=== PATIENT | female | born 1970 | race Two or more races ===

== ENCOUNTER → 2017-05-05 | Outpatient (REF) | payer OTHER | LOC: M SFHCPLAZ 09:33 | PROVIDERS: ATTEND Family Medicine | DX: F32.9 Major depressive disorder, single episode, unspecified (principal); E07.9 Disorder of thyroid, unspecified; Z68.41 Body mass index [BMI] 40.0-44.9, adult; Z13.220 Encounter for screening for lipoid disorders; Z72.51 High risk heterosexual behavior; Z11.59 Encounter for screening for other viral diseases; Z11.4 Encounter for screening for human immunodeficiency virus [HIV] ==

== ENCOUNTER → 2017-05-12 | Outpatient (REF) | payer OTHER | LOC: M SFHCPLAZ 09:59 | PROVIDERS: ATTEND Family Medicine | DX: D64.9 Anemia, unspecified (principal); R73.01 Impaired fasting glucose ==

== ENCOUNTER → 2017-07-05 | Outpatient (REF) | payer OTHER, MEDICARE | LOC: M SFHCWAGY 10:44 | DX: Z12.31 Encounter for screening mammogram for malignant neoplasm of breast (principal) ==

== ENCOUNTER → 2017-07-05 | Outpatient (REF) | payer OTHER, MEDICARE | LOC: M SFHCWAGY 10:44 | DX: Z12.4 Encounter for screening for malignant neoplasm of cervix (principal); N76.0 Acute vaginitis ==

== ENCOUNTER → 2017-07-05 | Outpatient (REF) | payer OTHER, MEDICARE ==
[2017-07-08 14:10] LABS: HPV HYBRID CAPTURE II Positive (Negative)
== END ==
LOC: M SFHCWAGY 10:44
DX: Z12.4 Encounter for screening for malignant neoplasm of cervix (principal); N76.0 Acute vaginitis
CPT/HCPCS: 88142

== ENCOUNTER → 2017-07-05 | Outpatient (CLI) | payer OTHER | LOC: M WHC 09:22 | DX: Z12.31 Encounter for screening mammogram for malignant neoplasm of breast (principal) | CPT/HCPCS: 93971 ==

== ENCOUNTER → 2017-07-05 | Outpatient (CLI) | payer OTHER | LOC: M RAD 10:27 | DX: M79.89 Other specified soft tissue disorders (principal) ==

== ENCOUNTER → 2017-07-18 | Outpatient (CLI) | payer OTHER | LOC: M WHC 08:48 | DX: N85.2 Hypertrophy of uterus (principal); D25.9 Leiomyoma of uterus, unspecified | CPT/HCPCS: 76830 ==

== ENCOUNTER 2017-08-12 20:20 | Emergency (ER) | payer OTHER, MEDICARE ==
[2017-08-12] MEDS: KETOROLAC 30 MG/ML VIAL (J1885) IV (21:02)
[2017-08-12] MEDS: ASPIRIN 325 MG TAB PO (21:02)
[2017-08-12] MEDS: NS 500 ML IV (21:02)
[2017-08-12 21:03] LABS: BASO % 0.3 % (0.0-1.0); EOS # 0.2 10^3/uL (0.0-0.50); EOS % 3.1 % (0.0-3.0); HEMATOCRIT 39.2 % (36.0-47.0); HEMOGLOBIN 12.2 g/dl (12.0-16.0); IMMATURE GRANULOCYTE % 0.5 % (0-3.0); LYMPH # 2.6 10^3/uL (1.5-4.5); LYMPH % 34.9 % (24.0-44.0); MEAN CORPUSCULAR HEMOGLOBIN 27.7 pg (27.0-33.0); MEAN CORPUSCULAR HGB CONC 31.1 g/dl (32.0-36.5); MEAN CORPUSCULAR VOLUME 88.9 fl (80.0-96.0); MONO # 0.6 10^3/uL (0.0-0.8); MONO % 7.8 % (0.0-5.0); NEUTROPHILS # 3.9 10^3/uL (1.8-7.7); NEUTROPHILS % 53.4 % (36.0-66.0); PLATELET COUNT, AUTOMATED 312 10^3/uL (150-450); RED BLOOD COUNT 4.41 10^6/uL (4.00-5.40); RED CELL DISTRIBUTION WIDTH 16.8 % (11.5-14.5); WHITE BLOOD COUNT 7.3 10^3/uL (4.0-10.0)
[2017-08-12 21:07] LABS: INR 0.99; PROTHROMBIN TIME 13.2 SECONDS (12.4-14.5)
[2017-08-12 21:16] LABS: ANION GAP 7 MEQ/L (8-16); BLOOD UREA NITROGEN 11 MG/DL (7-18); CALCIUM LEVEL 8.6 MG/DL (8.5-10.1); CARBON DIOXIDE LEVEL 25 MEQ/L (21-32); CHLORIDE LEVEL 107 MEQ/L (98-107); CPK CREATINE PHOSPHOKINASE 109 U/L (26-192); CREATININE FOR GFR 0.63 MG/DL (0.55-1.30); GLOMERULAR FILTRATION RATE > 60.0 (>58); GLUCOSE, FASTING 92 MG/DL (70-100); MB/CK RELATIVE INDEX 0.91 (< OR =4); POTASSIUM SERUM 4.8 MEQ/L (3.5-5.1); SODIUM LEVEL 139 MEQ/L (136-145); TROPONIN I < 0.02 NG/ML (< 0.10)
[2017-08-12] MEDS ORDERED: ISOVUE-370 76% 100ML VIAL (Q9967) As Ordered (21:24)
[2017-08-12 23:28] LABS: CPK CREATINE PHOSPHOKINASE 96 U/L (26-192); TROPONIN I < 0.02 NG/ML (< 0.10)
[2017-08-12 23:29] LABS: MB/CK RELATIVE INDEX 1.04 (< OR =4)
== END 2017-08-12 23:46 | disposition home or self-care (01) ==
LOC: M ED 20:20
DX: R07.1 Chest pain on breathing (principal); F32.9 Major depressive disorder, single episode, unspecified; D50.9 Iron deficiency anemia, unspecified; J45.909 Unspecified asthma, uncomplicated; Z86.718 Personal history of other venous thrombosis and embolism; Z87.891 Personal history of nicotine dependence; Z79.899 Other long term (current) drug therapy
CPT/HCPCS: Q9967

== ENCOUNTER → 2018-01-08 | Outpatient (CLI) | payer OTHER | LOC: M RAD 12:27 | DX: D17.1 Benign lipomatous neoplasm of skin and subcutaneous tissue of trunk (principal) | CPT/HCPCS: 76882 ==

== ENCOUNTER → 2018-02-12 | Outpatient (REF) | payer OTHER | LOC: M SFHCLERA 10:14 | DX: D17.1 Benign lipomatous neoplasm of skin and subcutaneous tissue of trunk (principal) | CPT/HCPCS: 88304 ==

== ENCOUNTER → 2018-02-13 | Outpatient (CLI) | payer OTHER ==
[2018-02-13 18:39] LABS: HEMOGLOBIN 12.4 g/dl (12.0-15.5); MEAN CORPUSCULAR HEMOGLOBIN 28.9 pg (27.0-33.0); MEAN CORPUSCULAR VOLUME 93.2 fl (80.0-96.0); PLATELET COUNT, AUTOMATED 323 10^3/uL (150-450); RED BLOOD COUNT 4.29 10^6/uL (4.00-5.40); RED CELL DISTRIBUTION WIDTH 14.6 % (11.5-14.5); WHITE BLOOD COUNT 8.2 10^3/uL (4.0-10.0)
== END ==
LOC: M SMT 13:23
DX: D50.0 Iron deficiency anemia secondary to blood loss (chronic) (principal)
CPT/HCPCS: 85027

== ENCOUNTER → 2018-03-23 | Outpatient (REF) | payer OTHER ==
[2018-03-23 16:11] LABS: HIV 1&2 SCREEN CENTAUR NEGATIVE (NEGATIVE)
[2018-03-23 16:11] LABS: HEPATITIS C VIRUS ABY INDEX 0.1 INDEX (<0.8)
== END ==
LOC: M SFHCPLAZ 09:44
DX: Z11.3 Encounter for screening for infections with a predominantly sexual mode of transmission (principal)
CPT/HCPCS: 86803

== ENCOUNTER → 2018-04-11 | Outpatient (CLI) | payer OTHER ==
[2018-04-11 15:52] LABS: HEPATITIS C VIRUS ABY INDEX 0.1 INDEX (<0.8)
[2018-04-11 15:52] LABS: HEPATITIS B SURFACE ANTIBODY NEGATIVE (POSITIVE); HIV 1&2 SCREEN CENTAUR NEGATIVE (NEGATIVE)
== END ==
LOC: M SMT 11:10
DX: Z11.9 Encounter for screening for infectious and parasitic diseases, unspecified (principal)
CPT/HCPCS: 86706

== ENCOUNTER → 2018-07-04 | Outpatient (REF) | payer OTHER ==
[~2018-07-04] MED LIST: FERR325T3 PO; KETO10TAB PO; PARO20TA3 PO; VENTAER IN
== END ==
LOC: M LAB REF 17:21
PROVIDERS: ATTEND Obstetrics & Gynecology
DX: N92.0 Excessive and frequent menstruation with regular cycle (principal)

== ENCOUNTER 2018-08-13 05:35 | Day surgery (SDC) | payer OTHER ==
[~2018-08-13] VITALS: Ht 170.2 cm; Wt 127.0 kg
[2018-08-13] VITALS (7 sets, daily range): BP systolic 122–133; BP diastolic 67–80
[2018-08-13 05:57] LABS: HEMATOCRIT 39.5 % (36.0-47.0); HEMOGLOBIN 12.7 g/dl (12.0-15.5); MEAN CORPUSCULAR HEMOGLOBIN 29.4 pg (27.0-33.0); MEAN CORPUSCULAR HGB CONC 32.2 g/dl (32.0-36.5); MEAN CORPUSCULAR VOLUME 91.4 fl (80.0-96.0); PLATELET COUNT, AUTOMATED 310 10^3/uL (150-450); RED BLOOD COUNT 4.32 10^6/uL (4.00-5.40); WHITE BLOOD COUNT 6.8 10^3/uL (4.0-10.0)
[2018-08-13] MEDS ORDERED: LR 1,000 ML IV ONE (06:00)
[2018-08-13] MEDS ORDERED: BUPIVACAINE HCL 0.25% 30 ML VIAL As Ordered ONE (07:10)
[2018-08-13] MEDS ORDERED: METHYLENE BLUE 0.5% (5MG/ML) 10 ML AMP (PROVAYBLUE)(Q9968 PER 1MG) As Ordered ONE (07:11)
[2018-08-13] MEDS ORDERED: PROPOFOL 200 MG/20 ML VIAL As Ordered ONE (07:17)
[2018-08-13] MEDS ORDERED: LIDOCAINE 2% INJ 100 MG/5 ML SDV (FOR ANES.) As Ordered ONE (07:17)
[2018-08-13] MEDS ORDERED: ROCURONIUM BROMIDE 50 MG/5 ML VIAL As Ordered ONE ×2 (07:17→08:09)
[2018-08-13] MEDS ORDERED: MIDAZOLAM INJ 2 MG/2 ML VIAL (J2250) As Ordered ONE (07:18)
[2018-08-13] MEDS ORDERED: fentaNYL 100 MCG/2 ML INJECTION (J3010) As Ordered ONE ×2 (07:18→07:48)
[2018-08-13] MEDS ORDERED: IBUP1TAB7 PO (07:26)
[2018-08-13] MEDS ORDERED: PERCOCET PO (07:27)
[2018-08-13] MEDS ORDERED: dexameTHASONE 4 MG/ML 1ML VIAL (J1100) As Ordered ONE (07:46)
[2018-08-13] MEDS ORDERED: DESFLURANE 240 ML INHALANT As Ordered ONE (08:32)
[2018-08-13] MEDS ORDERED: HYDROmorphone HCL 2 MG/ML 1ML VIAL (J1170) As Ordered ONE (08:55)
[2018-08-13] MEDS ORDERED: FUROSEMIDE 100 MG/10 ML VIAL (J1940) As Ordered ONE (10:51)
[2018-08-13] MEDS ORDERED: ePHEDrine SULFATE 25 MG/5 ML(5MG/ML) SYRINGE As Ordered ONE (10:51)
[2018-08-13] MEDS ORDERED: SUGAMMADEX SODIUM 500 MG/5 ML VIAL (BRIDION) As Ordered ONE (11:00)
[2018-08-13] MEDS ORDERED: ONDANSETRON 4MG/2ML VIAL (J2405) As Ordered ONE (11:35)
[2018-08-13] MEDS ORDERED: fentaNYL 100 MCG/2 ML INJECTION (J3010) IV PRN (11:45)
[2018-08-13] MEDS ORDERED: LR 1,000 ML IV SCH (11:45)
[2018-08-13] MEDS ORDERED: PERCOCET 5MG/325MG TAB PO PRN (11:45)
[2018-08-13] MEDS ORDERED: ONDANSETRON 4MG/2ML VIAL (J2405) IV PRN (11:45)
[2018-08-13] MEDS ORDERED: KETOROLAC 30 MG/ML VIAL (J1885) IV SCH (12:00)
--- NOTE | 2018-08-13 19:55 | RO ---
DATE OF PROCEDURE: 08/13/2018 PREOPERATIVE DIAGNOSES: 1. Fibroid uterus. 2. Abnormal uterine bleeding. POSTOPERATIVE DIAGNOSES: 1. Fibroid uterus. 2. Abnormal uterine bleeding. PROCEDURE PERFORMED: 1. Robotic-assisted laparoscopic hysterectomy. 2. Bilateral salpingectomy. 3. Morcellation of uterus. 4. Cystoscopy. SURGEON: July Taveras MD FX ARTIST: Yady Dodson, Nurse Practitioner ANESTHESIA: General endotracheal anesthesia. ESTIMATED BLOOD LOSS: 250 mL. INTRAVENOUS FLUIDS: 1500 mL of lactated Ringer's solution. URINE OUTPUT: 100 mL. PREOPERATIVE ANTIBIOTICS: 2 grams of Ancef. SPECIMENS: Morcellated uterus and cervix, bilateral fallopian tubes. OPERATIVE FINDINGS: Enlarged fibroid uterus. DESCRIPTION OF OPERATION: After informed consent was obtained and written consent was reviewed, the patient was brought to the operating room where general endotracheal anesthesia was obtained. She was then placed in lithotomy position and was prepped and draped in a normal sterile fashion. A time-out in the operating room was then performed identifying the patient, procedure to be performed as well as drug allergies. A speculum was then placed revealing the cervix. The anterior and posterior aspect of the cervix was stitched with #0 Vicryl. The uterus was then sounded to 12 cm. A large VCare uterine manipulator was then advanced through the cervical os and 7 mL was insufflated in the intrauterine balloon. The cervical cap was then placed over the cervix as well as the vaginal sleeve down into the vagina. A King catheter was then placed and set to gravity. Gloves were changed and attention was then turned to the patient's abdomen. A Veress needle was placed through the umbilicus and a pneumoperitoneum was then obtained with CO2 gas. The supraumbilical area was then infused with 0.25% Marcaine. An incision was made in this area and 8 mm trocar and sleeve was advanced through this incision. The laparoscope was replaced revealing intra-abdominal placement. The Veress needle was then removed, and the abdomen was surveyed with the above noted findings. Four additional port sites were placed, two to the patient's right side of the umbilicus and to the left side parallel to the umbilicus. Each one of these areas was infused with 0.25% Marcaine. Incision was made in each one of these areas. 8 mm trocars and sleeve was advanced through each one of these incisions under direct visualization. Next, the Da Mitchell was then docked using three operative arms. Bilateral salpingectomies were then performed. The right fallopian tube was placed on traction. Using the vessel sealer, the mesosalpinx was dissected to the level of the uterus, the fallopian tube was transected with good hemostasis noted. This was performed in a similar fashion on the left fallopian tube as well. The utero-ovarian ligaments bilaterally were cauterized and ligated with good hemostasis noted. The round ligaments bilaterally cauterized and ligated. This was further dissected along the broad ligaments, which were into two flaps. The anterior leaf of the broad ligaments were further dissected along the bladder, creating a bladder flap. The remainder of the broad and cardinal ligaments were also cauterized and ligated with good hemostasis noted. The uterine vessels were then skeletonized and was then cauterized and ligated with hemostasis noted bilaterally. Next, using Endo Amrita, monopolar cautery, anterior and posterior colpotomies were made with good hemostasis noted. The Da Mitchell was then undocked and vaginal morcellation of the uterus was performed. The uterus was brought down to the level of the introitus where the cervix was bivalved and further morcellated with removal of the uterus. The vagina was inspected for lacerations, abrasions. The Da Mitchell was then re-docked. The vaginal cuff was inspected. There was an area along the vesicouterine peritoneum with a superficial laceration along the vesicouterine peritoneum. This was oversewn with #3-0 Vicryl. Next, the vaginal cuff was closed with the #0 V-Loc suture in a running fashion. The abdomen and surgical sites were irrigated and suctioned. Susan was applied over the surgical field. Hemostasis was achieved. The pneumoperitoneum was then released and a cystoscopy was then performed, using a 70-degree cystoscope. The King catheter was removed, and the 70-degree cystoscope was advanced transurethrally and the bladder was inspected and showing normal bladder mucosa, bilateral ureteral jets were observed. The cystoscope was removed. The bladder was then drained. Attention was then turned to port closure where all five port sites were closed with #4-0 Monocryl and was dressed with Dermabond. The patient was then taken out of lithotomy position and taken to recovery in stable condition. Counts were correct. Yady Dodson, my salesperson surgical appliances, played an essential role during the surgery. She assisted with port placement, docking of the robot, as well as tissue retraction and identification, and removal of the specimen. JULIO
== END 2018-08-13 21:45 | disposition home or self-care (01) ==
LOC: M SDC 05:35 → M PED 13:47 → M SDC 21:45
PROVIDERS: ATTEND Obstetrics & Gynecology
DX: N93.9 Abnormal uterine and vaginal bleeding, unspecified (principal); D25.1 Intramural leiomyoma of uterus; D25.2 Subserosal leiomyoma of uterus; N72 Inflammatory disease of cervix uteri; N84.0 Polyp of corpus uteri; F41.9 Anxiety disorder, unspecified; D64.9 Anemia, unspecified; Z88.1 Allergy status to other antibiotic agents; Z88.8 Allergy status to other drugs, medicaments and biological substances; Z98.51 Tubal ligation status
CPT/HCPCS: 36415; 58573; 85027; 86850; 86900; 86901; 88307; 96374; 96375; J0690; J1100; J1170; J1885; J1940; J2250; J2405; J3010; Q9968

== ENCOUNTER → 2018-11-05 | Outpatient (REF) | payer OTHER ==
[~2018-11-05] MED LIST changes: +IBUP1TAB7 PO; +PERCOCET PO
== END ==
LOC: M SFHCPLAZ 13:27
PROVIDERS: ATTEND Family Medicine
DX: D50.0 Iron deficiency anemia secondary to blood loss (chronic) (principal); R73.03 Prediabetes; Z13.220 Encounter for screening for lipoid disorders

== ENCOUNTER → 2018-11-19 | Outpatient (CLI) | payer OTHER ==
--- NOTE | 2018-11-19 15:48 | REPMRS ---
Patient History The patient states she has not had a clinical breast exam in over a year. Patient is postmenopausal. Family history of endometrial cancer at age 28 in mother, ovarian cancer at age 22 in daughter, breast cancer at age 75 in maternal grandmother. Digital Woman Screen Mammo: November 19, 2018 - Exam #: [id number] Bilateral CC and MLO view(s) were taken. Technologist: Maureen Bell, Technologist Prior study comparison: July 05, 2017, digital woman screen mammo performed at [facility]. FINDINGS: The breast tissue is heterogeneously dense. This may lower the sensitivity of mammography. Bilateral screening digital mammogram with tomosynthesis: The patient states that there are no parpable breast lumps or other breast complaints. The patient's [place] Lifetime Breast Carcinoma Risk is: 12.4% The breasts are heterogeniously dense, which may obscure small masses. There has been no interval development of dominant mass, area of adchitectural distortion, or clustered microcalcifications typical of malignancy. . There are no additional findings with tomosynthesis. This mammogram is interpreted with the aid of an FDA approved computer-aided detection system. Not all cancers are identified by mammography. Negative mammogram reports should not delay biopsy if a dominant or clinically suspicious mass is present. Adenosis and dense breasts may obscure an underlying neoplasm. No significant changes when compared with prior studies. Assessment: BI-RADS/ACR category 1 mammogram. Negative Mammogram. Recommendation Routine screening mammogram in 1 year. Electronically Signed By: Brett Zamora M.D. 11/19/18 [id number]
== END ==
LOC: M WHC 13:36
PROVIDERS: ATTEND Obstetrics & Gynecology
DX: Z12.31 Encounter for screening mammogram for malignant neoplasm of breast (principal); Z78.0 Asymptomatic menopausal state; Z80.49 Family history of malignant neoplasm of other genital organs; Z80.41 Family history of malignant neoplasm of ovary

== ENCOUNTER 2018-12-03 15:28 | Emergency (ER) | payer OTHER ==
[~2018-12-03] VITALS: Ht 170.2 cm; Wt 122.4 kg
[2018-12-03 16:20] LABS: HEMATOCRIT 40.1 % (36.0-47.0); MEAN CORPUSCULAR HEMOGLOBIN 29.3 pg (27.0-33.0); MEAN CORPUSCULAR HGB CONC 32.4 g/dl (32.0-36.5); MEAN CORPUSCULAR VOLUME 90.5 fl (80.0-96.0); PLATELET COUNT, AUTOMATED 289 10^3/uL (150-450); RED BLOOD COUNT 4.43 10^6/uL (4.00-5.40); WHITE BLOOD COUNT 7.3 10^3/uL (4.0-10.0)
[2018-12-03 16:43] LABS: BLOOD UREA NITROGEN 9 MG/DL (7-18); CALCIUM LEVEL 8.3 MG/DL (8.5-10.1); CARBON DIOXIDE LEVEL 26 MEQ/L (21-32); CHLORIDE LEVEL 109 MEQ/L (98-107); CREATININE FOR GFR 0.69 MG/DL (0.55-1.30); GLOMERULAR FILTRATION RATE > 60.0 (>58); GLUCOSE, FASTING 143 MG/DL (70-100); SODIUM LEVEL 142 MEQ/L (136-145)
--- NOTE | 2018-12-03 17:02 | ECGEPIP ---
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
[2018-12-03] MEDS ORDERED: NEOM1SUS10 OTIC (17:58)
[2018-12-03] MEDS ORDERED: AZEL1SPR3 NARES (17:58)
[2018-12-03 18:04] VITALS: BP 140/86
== END 2018-12-03 18:09 | disposition home or self-care (01) ==
LOC: M ED 15:28
DX: H60.90 Unspecified otitis externa, unspecified ear (principal); J30.2 Other seasonal allergic rhinitis; I10 Essential (primary) hypertension; R51 Headache; Z88.1 Allergy status to other antibiotic agents

== ENCOUNTER 2018-12-25 07:55 | Outpatient (RCR) | payer OTHER ==
[~2018-12-25 07:55] MED LIST changes: +AZEL1SPR3 NARES; +NEOM1SUS10 OTIC
== END 2018-12-26 ==
LOC: M PT 07:55
PROVIDERS: ATTEND Obstetrics & Gynecology
DX: Z51.89 Encounter for other specified aftercare (principal); H81.23 Vestibular neuronitis, bilateral

== ENCOUNTER 2018-12-27 08:03 | Outpatient (RCR) | payer OTHER | END 2019-01-26 | LOC: M PT 08:03 | PROVIDERS: ATTEND Obstetrics & Gynecology | DX: H81.23 Vestibular neuronitis, bilateral (principal) ==

== ENCOUNTER → 2019-02-13 | Outpatient (CLI) | payer OTHER ==
[2019-02-13 13:58] LABS: HEMOGLOBIN A1c 6.1 %
== END ==
LOC: M SMT 11:57
PROVIDERS: ATTEND Obstetrics & Gynecology
DX: R73.03 Prediabetes (principal)

== ENCOUNTER → 2019-02-20 | Outpatient (CLI) | payer OTHER ==
--- NOTE | 2019-02-21 15:52 | DEXA ---
AP SPINE L1 - L4 1.287 0.7 0.8 LT FEMUR TOTAL 1.250 1.9 2.3 LT NECK 1.087 0.4 1.0 RT FEMUR TOTAL 1.209 1.6 1.9 RT NECK 1.028 -0.1 0.5 TOTAL BODY TOTAL OTHER COMMENTS: Normal bone densitometry of the spine and hips. FOLLOW-UP: Recommendation for the next bone density exam: 2 years. JULIO
== END ==
LOC: M WHC 08:07
PROVIDERS: ATTEND Obstetrics & Gynecology
DX: Z87.39 Personal history of other diseases of the musculoskeletal system and connective tissue (principal)

== ENCOUNTER → 2019-02-25 | Outpatient (RCR) | payer OTHER | LOC: M PT 01-31 13:29 | PROVIDERS: ATTEND Obstetrics & Gynecology | DX: H81.23 Vestibular neuronitis, bilateral (principal); M25.561 Pain in right knee; M25.562 Pain in left knee; M25.511 Pain in right shoulder ==

== ENCOUNTER 2019-03-27 08:44 | Outpatient (RCR) | payer OTHER | END 2019-03-28 | LOC: M PT 08:44 | PROVIDERS: ATTEND Obstetrics & Gynecology | DX: H81.23 Vestibular neuronitis, bilateral (principal); M25.519 Pain in unspecified shoulder; M25.569 Pain in unspecified knee ==

== ENCOUNTER 2019-04-19 17:57 | Observation (INO) | payer OTHER ==
[~2019-04-19] VITALS: Ht 167.6 cm; Wt 121.2 kg
--- NOTE | 2019-04-19 18:24 | REPVR ---
PROCEDURE INFORMATION: Exam: CT Head Without Contrast Exam date and time: 04/19/2019 6:06 PM Age: 48 years old Clinical history: Dizziness and other: High blood pressure; Additional info: CVA - nursing interventions must not delay CT TECHNIQUE: Imaging protocol: Computed tomography of the head without contrast. Radiation optimization: All CT scans at this facility use at least one of these dose optimization techniques: automated exposure control; mA and/or kV adjustment per patient size (includes targeted exams where dose is matched to clinical indication); or iterative reconstruction. Other technique: STROKE PROTOCOL was implemented. COMPARISON: CT Head without contrast 10/07/2016 10:18 AM FINDINGS: Brain: Normal. No hemorrhage. Unremarkable white matter. No mass effect. Ventricles: Normal. No ventriculomegaly. Bones/joints: There is hyperostosis frontalis interna. Sinuses: Visualized sinuses are unremarkable. No fluid levels. Mastoid air cells: Visualized mastoid air cells are well aerated. Soft tissues: Unremarkable. IMPRESSION: ASSESSMENT: ASPECTS ([place] Stroke Program Early CT Score) is 10. Electronically signed by: Roddy Auguste On 04/19/2019 18:24:23 PM
[2019-04-19 18:35] LABS: BASO % 0.3 % (0.0-1.0); EOS # 0.1 10^3/uL (0.0-0.5); EOS % 1.6 % (0.0-3.0); HEMOGLOBIN 13.5 g/dl (12.0-15.5); LYMPH # 2.7 10^3/uL (1.5-5.0); LYMPH % 30.6 % (24.0-44.0); MEAN CORPUSCULAR HEMOGLOBIN 30.8 pg (27.0-33.0); MEAN CORPUSCULAR HGB CONC 32.9 g/dl (32.0-36.5); MEAN CORPUSCULAR VOLUME 93.6 fl (80.0-96.0); MONO # 0.6 10^3/uL (0.0-0.8); MONO % 6.6 % (0.0-5.0); NEUTROPHILS # 5.3 10^3/uL (1.5-8.5); NEUTROPHILS % 60.6 % (36.0-66.0); PLATELET COUNT, AUTOMATED 298 10^3/uL (150-450); RED BLOOD COUNT 4.38 10^6/uL (4.00-5.40); WHITE BLOOD COUNT 8.7 10^3/uL (4.0-10.0)
[2019-04-19 18:51] LABS: INR 1.15; PROTHROMBIN TIME 14.4 SECONDS (11.8-14.0)
[2019-04-19 18:54] LABS: D-DIMER QUANT 546.53 ng/ml (<500)
[2019-04-19 19:00] LABS: BLOOD UREA NITROGEN 10 MG/DL (7-18); CARBON DIOXIDE LEVEL 28 MEQ/L (21-32); CHLORIDE LEVEL 106 MEQ/L (98-107); CK-MB VALUE MASS < 1.0 NG/ML (<3.6); CPK CREATINE PHOSPHOKINASE 156 U/L (26-192); CREATININE FOR GFR 0.73 MG/DL (0.55-1.30); GLOMERULAR FILTRATION RATE > 60.0 (>58); GLUCOSE, FASTING 116 MG/DL (70-100); MB/CK RELATIVE INDEX 0.64 (< OR =4); POTASSIUM SERUM 3.8 MEQ/L (3.5-5.1); SODIUM LEVEL 140 MEQ/L (136-145); TROPONIN I < 0.02 NG/ML (< 0.10)
[2019-04-19] MEDS ORDERED: ALL10TAB29 PO (19:01)
[2019-04-19] MEDS ORDERED: ALBU8.5H INH (19:01)
[2019-04-19] MEDS ORDERED: FLUTISP NARES (19:01)
[2019-04-19] MEDS ORDERED: MONT10TA2 PO (19:01)
--- NOTE | 2019-04-19 19:21 | REP ---
REASON: Chest pain. COMPARISON: 10/07/2016 The technique utilized in obtaining the radiograph has magnified the cardiac silhouette and accentuated the interstitial markings. FINDINGS: The superior mediastinal structures are midline. The cardiac silhouette is unremarkable in size, shape, and position. The diaphragmatic surfaces of the lungs are regular, and the costophrenic angles are clear. The pulmonary lang are clear. The imaged osseous structures are intact. IMPRESSION: There is no acute cardiopulmonary disease. Electronically Signed by Rip Santana DO 04/20/2019 09:17 A
[2019-04-19] MEDS ORDERED: ISOVUE-370 76% 100ML VIAL (Q9967) As Ordered ONE (20:27)
--- NOTE | 2019-04-19 20:47 | REPVR ---
PROCEDURE INFORMATION: Exam: MR Head Without Contrast Exam date and time: 04/19/2019 7:41 PM Age: 48 years old Clinical history: Speech disturbance; Patient HX: Slurred speech that has since subsided; Additional info: Slurred speech; R/O stroke TECHNIQUE: Imaging protocol: MR of the head without contrast. COMPARISON: MRI-Brain without Contrast 10/07/2016 2:14 PM FINDINGS: Ventricles demonstrate normal size and configuration. Major vascular flow voids at the skull base are preserved. No extra-axial fluid collection. No midline shift or intracranial mass effect. No diffusion restriction. 6 mm focus of increased signal involving the medulla on the left side (series 801 image 6). No associated expansion or diffusion restriction. Visualized paranasal sinuses and mastoid air cells are clear. IMPRESSION: 6 mm focus of increased T2 weighted signal involving the medulla on the left without associated diffusion restriction. Differential considerations include subacute ischemic CVA with diffusion pseudonormalization, infectious/inflammatory process or neoplasia. Followup is recommended. Electronically signed by: Yovanny Lombardo On 04/19/2019 20:47:09 PM
--- NOTE | 2019-04-19 20:49 | REPVR ---
PROCEDURE INFORMATION: Exam: MR Angiogram Head Without Contrast, Arteries Exam date and time: 04/19/2019 7:41 PM Age: 48 years old Clinical history: Speech disturbance; Patient HX: Slurred speech that has since subsided; Additional info: Slurred speech; R/O stroke TECHNIQUE: Imaging protocol: MR angiogram head without contrast. Exam focused on the arteries. 3D rendering: MIP reconstructed images were created and reviewed. COMPARISON: MRI-Brain without Contrast 10/07/2016 2:14 PM FINDINGS: Right internal carotid artery: Unremarkable. Intracranial segment is patent with no significant stenosis. No aneurysm. Right anterior cerebral artery: Unremarkable. No occlusion or significant stenosis. No aneurysm. Right middle cerebral artery: Unremarkable. No occlusion or significant stenosis. No aneurysm. Right posterior cerebral artery: Unremarkable. No occlusion or significant stenosis. No aneurysm. Right vertebral artery: Right vertebral artery is dominant. Left internal carotid artery: Unremarkable. Intracranial segment is patent with no significant stenosis. No aneurysm. Left anterior cerebral artery: Unremarkable. No occlusion or significant stenosis. No aneurysm. Left middle cerebral artery: Unremarkable. No occlusion or significant stenosis. No aneurysm. Left posterior cerebral artery: Unremarkable. No occlusion or significant stenosis. No aneurysm. Left vertebral artery: Unremarkable. No occlusion or significant stenosis. No aneurysm. Basilar artery: Unremarkable. No occlusion or significant stenosis. No aneurysm. IMPRESSION: No hemodynamically significant stenosis or large vessel occlusion. Electronically signed by: Yovanny Lombardo On 04/19/2019 20:49:00 PM
[2019-04-19] MEDS ORDERED: ONDANSETRON 4MG/2ML VIAL (J2405) IV ONE (21:00)
--- NOTE | 2019-04-19 21:43 | REPVR ---
PROCEDURE INFORMATION: Exam: CT Angiography Chest With Contrast Exam date and time: 04/19/2019 9:30 PM Age: 48 years old Clinical history: Pain and abnormal findings; Abnormal diagnostic tests; Elevated d-dimer; Shortness of breath; Chest pain; Additional info: SOB; Chest pain; R/O pe; Elevated dimer TECHNIQUE: Imaging protocol: Computed tomographic angiography of the chest with intravenous contrast. 3D rendering: MIP reconstructed images were created and reviewed. Radiation optimization: All CT scans at this facility use at least one of these dose optimization techniques: automated exposure control; mA and/or kV adjustment per patient size (includes targeted exams where dose is matched to clinical indication); or iterative reconstruction. Contrast material: ISOVUE 370; Contrast volume: 75 ml; Contrast route: IV; COMPARISON: CT ANGIO CHEST 08/12/2017 9:30 PM FINDINGS: Limitations: Patient motion. Pulmonary arteries: No convincing evidence of pulmonary embolus. Aorta: Unremarkable. No aortic aneurysm. No aortic dissection. Lungs: Unremarkable. No consolidation. No masses. Pleural space: Unremarkable. No pneumothorax. No pleural effusion. Heart: Unremarkable. No cardiomegaly. No pericardial effusion. Liver: There are several hepatic cysts measuring up to 2 cm. Lymph nodes: Unremarkable. No enlarged lymph nodes. Bones/joints: Unremarkable. No acute fracture. Soft tissues: Unremarkable. IMPRESSION: Patient respiratory motion without convincing evidence of acute abnormality. Electronically signed by: Yovanny Lombardo On 04/19/2019 21:43:30 PM
[2019-04-19] MEDS ORDERED: NS 1,000 ML IV ONE (22:15)
--- NOTE | 2019-04-19 22:31 | REPVR ---
PROCEDURE INFORMATION: Exam: US Duplex Left Lower Extremity Veins, Limited Exam date and time: 04/19/2019 10:27 PM Age: 48 years old Clinical history: Pain; Leg, upper; Left; Additional info: Left posterior knee pain; R/O dvt TECHNIQUE: Imaging protocol: Real-time Duplex ultrasound of the Left Lower Extremity with 2-D lopez scale, color Doppler flow and spectral waveform analysis with image documentation. Limited exam focused on the left lower extremity veins. COMPARISON: US Duplex, Ext,LOWER veins,unilat 08/12/2017 9:27 PM FINDINGS: Left deep veins: Unremarkable. The common femoral, femoral, proximal profunda femoral and popliteal veins are patent without thrombus. Normal Doppler waveforms. Normal compressibility and/or augmentation response. Left superficial veins: Unremarkable. Saphenofemoral junction is patent without thrombus. Soft tissues: Unremarkable. IMPRESSION: No acute findings. No evidence of deep vein thrombosis. Electronically signed by: Yovanny Lombardo On 04/19/2019 22:31:37 PM
[2019-04-19] MEDS ORDERED: ASPIRIN 81 MG CHEW TABLET PO ONE (23:00)
[2019-04-19] MEDS ORDERED: LISINOPRIL 20 MG TAB PO ONE (23:30)
[2019-04-19 23:45] LABS: FREE T4 0.85 NG/DL (0.76-1.46)
[2019-04-19] MEDS ORDERED: hydrALAZINE INJ 20 MG/ML VIAL IV PRN (23:45)
--- NOTE | 2019-04-20 00:38 | REPVR ---
PROCEDURE INFORMATION: Exam: US Duplex Bilateral Extracranial Arteries Exam date and time: 04/20/2019 12:06 AM Age: 48 years old Clinical history: Other: ? TIA TECHNIQUE: Imaging protocol: Real-time Duplex ultrasound scan of the bilateral carotid and vertebral arteries combining lopez scale, color Doppler and spectral waveform analysis. Bilateral exam. COMPARISON: CT Head without contrast 04/19/2019 6:15 PM FINDINGS: Right common carotid artery: Peak systolic velocity of the right common carotid artery is 106 cm/s. Right internal carotid artery: Peak systolic velocity of the right internal carotid artery is 67 cm/s. Right ICA/CCA ratio: Right ICA/CCA ratio is 0.6. Right external carotid artery: No stenosis in the origin. Right vertebral artery: Unremarkable. Antegrade flow Left common carotid artery: Peak systolic velocity of the left common carotid artery is 125 cm/s. Left internal carotid artery: Peak systolic velocity of the left internal carotid artery is 62 cm/s. Left ICA/CCA ratio: Left ICA/CCA ratio is 0.5. Left external carotid artery: No stenosis in the origin. Left vertebral artery: Unremarkable. Antegrade flow. IMPRESSION: No hemodynamically significant stenosis. COMMENT: Carotid Stenosis Reference using SRU criteria: Mild: less than 50% stenosis. ICA PSV is less than 125 cm/second and plaque or intimal thickening is visible. Moderate: 50-69% stenosis. ICA PSV is 125 to 230 cm/second and plaque is visible. Severe: 70-94% stenosis. ICA PSV is more than 230 cm/second and visible plaque and lumen narrowing are seen. Near occlusion: 95-99% stenosis. ICA PSV is variable and significant plaque and luminal narrowing are seen. Occluded: 100% stenosis. No flow identified. Electronically signed by: Yovanny Lombardo On 04/20/2019 00:37:55 AM
[2019-04-20 00:57] LABS: CK-MB VALUE MASS < 1.0 NG/ML (<3.6); CPK CREATINE PHOSPHOKINASE 118 U/L (26-192); MB/CK RELATIVE INDEX 0.85 (< OR =4); TROPONIN I < 0.02 NG/ML (< 0.10)
[2019-04-20 01:25] VITALS: BP 140/86
--- NOTE | 2019-04-20 02:14 | HPEPDOC ---
General Date of Admission Apr 19, 2019 at 17:58 Date of Service: Apr 19, 2019 Primary Care Physician: SONIA KUO D.O. Attending Physician: NAI FOSTER DO Chief Complaint The patient is a 48-year-old female admitted with a reason for visit of Slurring Of Speech. History of Present Illness 48-year-old female with anxiety, depression, prediabetes, morbid obesity, presenting with slurred speech, headache, blurred vision in both eyes, fatigue, nausea vomiting, chest discomfort, dizzy spells. She is accompanied by her 2 sisters and one friend, who provide additional information given the learning disability in the patient herself. She reports these symptoms have been intermittent for the past 2 years, however never to this significant extreme. Her most recent episode started earlier today at 2 PM without any inciting factors. She has noted her symptoms always get worse with activity and rapid movements, better with rest. Denies any paresthesias, facial droop, presyncope or syncope, fevers, chills, skin rashes. Denies any prior neurologic or cardiac history. No recent changes in medications, recent travel, or sick contacts or recent illnesses. When examined in the ER, she denies all symptoms and reports she feels back to her normal self. Per ER reports, her NIHSS score on initial presentation was 0, as was with assessment at time of admission. In the ER, she was found to have blood pressures 190s/100s, spontaneously improving to 160s sbp. She admits to having a history of hypertension, being on blood pressure medications 2 years ago in [place], and is unsure why she no longer is on them. MRI brain revealed a 6 mm increased T2 signal on left side of medulla, concern for possible subacute stroke vs neoplasm. Will admit for further w/u. Home Medications Scheduled Cetirizine HCl (Cetirizine HCl) 10 Mg Tablet, 10 MG PO DAILY, (Reported) Fluticasone Propionate (Fluticasone Propionate) 16 Gm Harrison.susp, 1 SPRAY NARES DAILY, (Reported) Montelukast Sodium (Montelukast Sodium) 10 Mg Tablet, 10 MG PO DAILY, (Reported) Scheduled PRN Albuterol Sulfate (Albuterol Sulfate Hfa) 8.5 Gm Hfa.aer.ad, 2 PUFFS INH Q4H PRN for SHORTNESS OF BREATH, (Reported) Allergies Coded Allergies: ofloxacin (Verified Allergy, Intermediate, REDNESS OF EYES, 12/03/18) Past Medical History Medical History Prediabetes Anxiety/depression Morbid obesity Hypertension-not on meds Surgical History Hysterectomy salpingectomy Family History Father : COPD Mother: Lung cancer, Parkinson's, thyroid issues, hypertension Sister: Breast cancer Social History Smoked 1 pack per day for one month, quit 2 years ago. Denies any alcohol or illicit substances. Has never worked-on disability due to learning deficits. A-FIB/CHADSVASC A-FIB History Current/History of A-Fib/PAF?: No Current PO Anticoag Therapy: No Review of Systems Other systems Denies all symptoms at time of exam. Admits to following symptoms earlier in day: Constitutional: Denies fever, chills, night sweats, weight loss. Admits fatigue HEENT: Denies dysphagia, admits headache Skin: Denies any rashes or lesions Pulmonary: Denies dyspnea, cough, wheezing Cardiac: Denies palpitations, orthopnea, PND, edema. Admits chest pain & lightheadedness GI: Denies abdominal pain, diarrhea, constipation. Admits nausea, vomiting MSK: Denies new pains or weakness Neurologic: Denies numbness, paresthesia, loss of balance, bowel/bladder incontinence. Admits to blurred vision b/l, slurred speech, dizzy spells Physical Examination Other physical findings General exam: A&O 3, NAD, fully conversant HEENT: NCAT, EOMI, PEERLA, red reflex intact b/l, neck supple without carotid bruit Cardiac: RRR, normal S1 & S2, no murmurs Respiratory: CTAB, good air exchange, no w/r/r Abdomen: soft, NT, ND, normoactive bowel sounds Extremity: 2+ radial and dorsalis pedis pulses, no edema. Has b/l calf tenderness-but no swelling or erythema or warmth Skin: [place], warm, dry, no visible rash Msk: strength 5/5 x4, normal tone Neuro: normal speech, tongue midline, no facial droop, no pronator drift, sensation intact & equal x4, negative Babinski & Rhomberg, nml finger to nose & rapid alternating mvmnt & heel to sawyer. Reflexes 2+ in all extremities Psych: Normal mood and affect Vital Signs Vital Signs Date Time Temp Pulse Resp B/P (MAP) Pulse Ox O2 Delivery O2 Flow Rate FiO2 04/19/19 23:08 83 20 179/108 (131) 95 Room Air 04/19/19 17:57 97.9 Laboratory Data Labs 24H Laboratory Tests 2 04/19/19 18:16: Immature Granulocyte % (Auto) 0.3, Neutrophils (%) (Auto) 60.6, Lymphocytes (%) (Auto) 30.6, Monocytes (%) (Auto) 6.6H, Eosinophils (%) (Auto) 1.6, Basophils (%) (Auto) 0.3, Neutrophils # (Auto) 5.3, Lymphocytes # (Auto) 2.7, Monocytes # (Auto) 0.6, Eosinophils # (Auto) 0.1, Basophils # (Auto) 0.0, Nucleated Red Blood Cells % (auto) 0.0, Prothrombin Time 14.4H, Prothromb Time International Ratio 1.15, Activated Partial Thromboplast Time 28.0, D-Dimer, Quantitative 546.53H, Anion Gap 6L, Glomerular Filtration Rate > 60.0, Calcium Level 9.0, Total Creatine Kinase 156, Creatine Kinase MB < 1.0, Creatine Kinase MB Relative Index 0.64, Troponin I < 0.02, Thyroid Stimulating Hormone (TSH) 4.380H, Free Thyroxine 0.85 04/20/19 00:13: Total Creatine Kinase 118, Creatine Kinase MB < 1.0, Creatine Kinase MB Relative Index 0.85, Troponin I < 0.02 CBC/BMP Laboratory Tests 04/19/19 18:16 Assessment/Plan 48-year-old female with anxiety, depression, prediabetes, morbid obesity, presenting with slurred speech, headache, blurred vision in both eyes, fatigue, nausea vomiting, chest discomfort, dizzy spells intermittently for past 2 years, most recent episode being the worst. Found to have blood pressures 190s/100s and 6 mm increased T2 signal on left side of medulla. Slurred speech, blurred vision bilaterally, dizziness * Patient has had the symptoms intermittently for the past 2 years, thus less likely to be true TIA/stroke. May be 2/2 of her elevated blood pressures on admission, and being off of her blood pressure meds over the past 2 years. NIHSS = 0. Normal neuro exam. Imaging negative for bleed, however 6 mm lesion on left side of medulla noted on MRI warrants further workup. If this is indeed a true ischemic event, she is outside the window for TPA. Call neurology in the morning to further assess the lesion. In the meanwhile, we'll prophylactically start her on aspirin and statin and monitor blood pressure with anti-hypertensives started. Patient's sisters to report she has a history of BPPV, which may be contributing to her symptoms. She denies all symptoms at the time of admission. Monitor with neuro checks in place. Work with PT and OT. Brain lesion * Patient reports never having an MRI in her life. The newly found 6 mm increased signal on the left side of medulla on MRI may be chronic vs ischemic vs malignant. She does have a strong family history of cancer. Will confer with neurology in the morning. Unlikely infectious given her clinical picture. Hypertensive urgency * Initial BP 190/100, spontaneously improved into the 160s. She does report a history of hypertension, however unclear why she stopped her meds 2 years ago. This may also explain her intermittent episodes of the above symptoms that began at the same time period. No end organ damage noted, however if this is a true ischemic event, then indeed her hypertensive emergency will need more aggressive treatment. Lisinopril & prn Hydralazine added. Monitor. Atypical chest pain * Also has been intermittent over the past 2 years, making it less likely a true cardiac event. Her risk factors include gender, hypertension, and obesity. No prior cardiac events for her or in her family. EKG on admission is without any concerning ST changes, and is NSR. Cardiac markers negative X2. Repeat in a.m. labs. May be 2/2 her known anxiety for which she is not taking medications. E cho and lipid panel pending. Morbid obesity * BMI 43 complicates care. Likely has JUDY versus obesity hypoventilation syndrome. Placed on JUDY protocol DVT ppx: heparin sc DISPO: will observe on Hospitalist service. Discuss imaging with Neurology in am. Plan / VTE VTE Prophylaxis Ordered?: Yes MAGGI LATHAM DO Apr 20, 2019 02:14
[2019-04-20 04:00] VITALS: BP 140/78
[2019-04-20 06:18] LABS: HEMATOCRIT 42.3 % (36.0-47.0); HEMOGLOBIN 13.2 g/dl (12.0-15.5); MEAN CORPUSCULAR HEMOGLOBIN 30.1 pg (27.0-33.0); MEAN CORPUSCULAR HGB CONC 31.2 g/dl (32.0-36.5); MEAN CORPUSCULAR VOLUME 96.6 fl (80.0-96.0); PLATELET COUNT, AUTOMATED 281 10^3/uL (150-450); RED BLOOD COUNT 4.38 10^6/uL (4.00-5.40); WHITE BLOOD COUNT 7.8 10^3/uL (4.0-10.0)
[2019-04-20 06:42] LABS: BLOOD UREA NITROGEN 9 MG/DL (7-18); CALCIUM LEVEL 8.9 MG/DL (8.5-10.1); CARBON DIOXIDE LEVEL 27 MEQ/L (21-32); CHLORIDE LEVEL 108 MEQ/L (98-107); CHOLESTEROL LEVEL 137 MG/DL (<200); CHOLESTEROL RISK RATIO 3.044 (<5); CREATININE FOR GFR 0.74 MG/DL (0.55-1.30); GLOMERULAR FILTRATION RATE > 60.0 (>58); GLUCOSE, FASTING 113 MG/DL (70-100); HDL CHOLESTEROL 45 MG/DL (>40); LDL CHOLESTEROL 67 MG/DL (<100); MAGNESIUM LEVEL 2.2 MG/DL (1.8-2.4); NON-HDL-C 92 MG/DL; POTASSIUM SERUM 3.8 MEQ/L (3.5-5.1); SODIUM LEVEL 140 MEQ/L (136-145); TRIGLYCERIDES LEVEL 125 MG/DL (<150)
--- NOTE | 2019-04-20 06:42 | ECGEPIP ---
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
[2019-04-20 08:00] VITALS: BP 122/57
[2019-04-20] MEDS ORDERED: LISINOPRIL 20 MG TAB PO SCH (09:00)
[2019-04-20] MEDS ORDERED: CETIRIZINE (ZyrTEC) 10 MG TAB PO SCH (09:00)
[2019-04-20] MEDS ORDERED: HEPARIN SOD (PORCINE) 5000 UNITS/ML VIAL SC SCH (09:00)
[2019-04-20] MEDS ORDERED: FLUTICASONE PROP 0.05% NASAL SPRAY 16 GM (FLONASE) NARES SCH (09:00)
[2019-04-20] MEDS ORDERED: ASPIRIN 81 MG ENTERIC TAB PO SCH (09:00)
[2019-04-20] MEDS ORDERED: MONTELUKAST 10 MG TAB PO SCH (09:00)
[2019-04-20 09:01] VITALS: BP 122/57
[2019-04-20] MEDS ORDERED: ACETAMINOPHEN TAB 650MG DOSE (2X325MG) PO PRN (09:15)
[2019-04-20 12:00] VITALS: BP 122/71
[2019-04-20 16:00] VITALS: BP 130/68
[2019-04-20] MEDS ORDERED: ASPI81TAEC PO (16:49)
[2019-04-20] MEDS ORDERED: LISI-538 PO ×2 (16:49→20:00)
[2019-04-20] MEDS ORDERED: ASPI81CH33 PO (20:00)
[2019-04-20] MEDS ORDERED: ATORVASTATIN 20 MG TAB PO SCH (21:00)
--- NOTE | 2019-04-21 08:20 | ECHO ---
DATE OF PROCEDURE: 04/20/2019 REFERRING PHYSICIAN: Dr. Harley Stanley INDICATION: Transient cerebral ischemia unspecified. HEIGHT: 167 cm. WEIGHT: 121 kg. 2D MEASUREMENTS: Aortic root - 2.9 cm Left atrium - 3.8 cm Left atrial volume index - 33 Ventricular septum - 1.05 cm Posterior wall - 1.03 cm Left ventricle diastole - 4.9 cm Inferior vena cava - 1.4 cm DOPPLER MEASUREMENTS: Aortic valve velocity - 127 cm/s LVOT velocity - 96.6 cm/s No aortic regurgitation. Trace mitral regurgitation. Trace tricuspid regurgitation. No pulmonic regurgitation. Mitral E velocity - 68.7 cm/s Mitral A velocity - 48.4 cm/s Mitral deceleration time - 252 ms. Pulmonary acceleration time 141 ms. MITRAL ANNULAR TISSUE DOPPLER: E prime septal - 8.6 cm/s DESCRIPTION: Rhythm was sinus. This was a moderate technically difficult echocardiogram. No pericardial effusion. This is a 2D, M-mode, color flow Doppler and pulsed wave Doppler examination with mitral annular tissue Doppler. CONCLUSIONS: 1. Mild left atrial dilatation. 2. Otherwise normal appearing echocardiogram Doppler findings. 3. Normal left ventricle internal dimensions and wall thickness. Normal regional LV wall motion and wall thickening of the left ventricle. Normal LV systolic function. Normal LV diastolic function. 4. Moderately technically difficult echocardiogram.
--- NOTE | 2019-04-21 19:14 | CR ---
DATE OF CONSULTATION: 04/21/2019 REFERRING PROVIDER: Nery Hurst MD REASON CONSULTATION: Suspected hypertensive urgency with slurred speech. The patient is a 48-year-old female with past medical history significant for prediabetes and hypertension. The patient presented to [facility] after noting at the pharmacy that she had elevated blood pressure which only got worse. The patient's systolic blood pressure was in 190s by the time she was in the hospital. The patient was experiencing progressive symptoms of slurring of her speech to the point where it was unintelligible. The patient was brought to the hospital where her blood pressure was normalized. Head CT and MRI were reported normal with exception of a 6 mm abnormality, hyperintensity noted on axial T2 sequencing involving the left medulla. The patient is currently asymptomatic from that lesion. It is possible that the lesion is actually an artifact. Will certainly repeat imaging of the brain with and without contrast in an outpatient setting in a few months' time. In the meantime, the patient states her symptoms have resolved. She denies any headache, dizziness, shortness of breath, numbness, tingling, weakness, paresthesias, vertigo, headache at this time. 14-point review of systems obtained and is negative except as per history of present illness. HOME MEDICATIONS: Cetirizine 10 mg by mouthdaily, fluticasone 16 grams spray suspension 1 spray daily, montelukast 10 mg daily, albuterol 8.5 grams HFA 2 puffs inhaled every 4 hours as needed for shortness of breath. ALLERGIES: OFLOXACIN PAST MEDICAL HISTORY: Prediabetes, anxiety/depression, morbid obesity, hypertension not treated. PAST SURGICAL HISTORY: Hysterectomy, salpingectomy. FAMILY HISTORY: Mother with Parkinson's disease and hypertension. SOCIAL HISTORY: The patient smoked one-pack tobacco per day for one month, quit 2 years. Denies use of any alcohol or illicit drugs. She has some sort of learning disability. PHYSICAL EXAMINATION: Blood pressure is 130/68, pulse rate 66, respiratory rate is 18, temperature is 98.9 degrees Fahrenheit, oxygenation is 95% on room air. TSH is 4.380. The patient is awake, alert, oriented to person, place and time. Speech, language, comprehension and repetition are intact. Pupils are 3 mm round, reactive to light. Extraocular movements are intact in all directions without nystagmus. Sensation V1, V2 V3 are intact to light touch. No facial asymmetry to activation. Palate elevates symmetrically. Tongue is midline. No weakness of sternocleidomastoids bilaterally. Hearing is subjectively equal to finger rub. There is no pronator drift. Strength is 5/5 including bilateral deltoids, biceps, triceps, handgrip, iliopsoas, quadriceps, anterior tibialis. Deep tendon reflexes are 2s in the upper extremities, abscess patellas and Achilles. Romberg testing is negative. Gait is normal. Sensory is intact to light touch in all four extremities. Coordination without any signs of gross ataxia or dysmetria. ASSESSMENT: 1. Hypertensive urgency resulting in transient slurred speech. 2. Abnormal Magnetic Resonance Imaging (MRI) of brain with reported 6 mm lesion involving the lateral medulla PLAN: 1. Recommend continuation of aspirin 81 mg daily, continuation of lisinopril 20 mg by mouth daily. Recommend outpatient neurology followup. The patient's blood pressure is back to normal and the patient is asymptomatic without MRI evidence of stroke. The patient can followup in the [facility] Neurology office; at which time, we will arrange for MRI brain with and without contrast to be repeated in the future 3 to 6 months from now. History obtained from both the patient, the patient's sister and family friend.
== END 2019-04-20 20:04 | disposition home or self-care (01) ==
LOC: M ED 17:57 → M ED INP 17:58 → M PCU 04-20 01:28
PROVIDERS: ADMIT Internal Medicine; ATTEND Internal Medicine
DX: I16.0 Hypertensive urgency (principal); R47.81 Slurred speech; G93.9 Disorder of brain, unspecified; I51.7 Cardiomegaly; R29.700 NIHSS score 0; R51 Headache; H53.8 Other visual disturbances; R53.83 Other fatigue; R11.2 Nausea with vomiting, unspecified; R07.9 Chest pain, unspecified; R42 Dizziness and giddiness; R73.03 Prediabetes; F41.9 Anxiety disorder, unspecified; F32.9 Major depressive disorder, single episode, unspecified; E66.01 Morbid (severe) obesity due to excess calories; Z68.41 Body mass index [BMI] 40.0-44.9, adult; K21.9 Gastro-esophageal reflux disease without esophagitis; E03.9 Hypothyroidism, unspecified; Z88.1 Allergy status to other antibiotic agents; Z79.899 Other long term (current) drug therapy; Z87.891 Personal history of nicotine dependence; Z80.8 Family history of malignant neoplasm of other organs or systems
CPT/HCPCS: 36415; 70450; 70544; 70551; 71045; 71275; 80048; 80061; 82550; 82553; 83735; 84439; 84443; 85025; 85027; 85379; 85610; 85730; 86850; 86900; 86901; 93005; 93041; 93306; 93880; 93971; 94760; 96372; 96374; 97161; 99285; J2405; Q9967

== ENCOUNTER → 2019-05-10 | Outpatient (CLI) | payer OTHER ==
[~2019-05-10] MED LIST changes: +ALBU8.5H INH; +ALL10TAB29 PO; +ASPI81CH33 PO; +ASPI81TAEC PO; +FLUTISP NARES; +LISI-538 PO; +MONT10TA2 PO
[2019-05-10 12:11] LABS: BLOOD UREA NITROGEN 10 MG/DL (7-18); CREATININE FOR GFR 0.66 MG/DL (0.55-1.30); GLOMERULAR FILTRATION RATE > 60.0 (>58)
== END ==
LOC: M LAB 10:36
PROVIDERS: ATTEND Psychiatry & Neurology Neurology
DX: I10 Essential (primary) hypertension (principal)

== ENCOUNTER → 2019-06-17 | Outpatient (REF) | payer OTHER ==
[2019-06-17 15:49] LABS: HEMOGLOBIN A1c 6.3 %
== END ==
LOC: M SFHCPLAZ 14:10
PROVIDERS: ATTEND Family Medicine
DX: R73.03 Prediabetes (principal)

== ENCOUNTER → 2019-09-20 | Outpatient (CLI) | payer OTHER ==
[~2019-09-20] MED LIST changes: -MONT10TA2 PO; +MONT10TA4 PO
[2019-09-20 10:59] LABS: BLOOD UREA NITROGEN 14 MG/DL (7-18); CALCIUM LEVEL 8.7 MG/DL (8.5-10.1); CARBON DIOXIDE LEVEL 27 MEQ/L (21-32); CHLORIDE LEVEL 108 MEQ/L (98-107); CREATININE FOR GFR 0.69 MG/DL (0.55-1.30); FREE T4 0.91 NG/DL (0.76-1.46); GLOMERULAR FILTRATION RATE > 60.0 (>58); GLUCOSE, FASTING 122 MG/DL (70-100); POTASSIUM SERUM 4.8 MEQ/L (3.5-5.1); SODIUM LEVEL 140 MEQ/L (136-145)
[2019-09-20 11:07] LABS: HEMOGLOBIN A1c 6.4 %
== END ==
LOC: M LAB 09:43
PROVIDERS: ATTEND Obstetrics & Gynecology
DX: R73.03 Prediabetes (principal); I10 Essential (primary) hypertension

== ENCOUNTER → 2019-10-17 | Outpatient (CLI) | payer OTHER ==
[2019-10-17 11:16] LABS: BLOOD UREA NITROGEN 12 MG/DL (7-18); CALCIUM LEVEL 8.5 MG/DL (8.5-10.1); CARBON DIOXIDE LEVEL 29 MEQ/L (21-32); CHLORIDE LEVEL 105 MEQ/L (98-107); CREATININE FOR GFR 0.67 MG/DL (0.55-1.30); GLOMERULAR FILTRATION RATE > 60.0 (>58); GLUCOSE, FASTING 107 MG/DL (70-100); POTASSIUM SERUM 4.4 MEQ/L (3.5-5.1); SODIUM LEVEL 140 MEQ/L (136-145)
== END ==
LOC: M LAB 09:31
PROVIDERS: ATTEND Obstetrics & Gynecology
DX: I10 Essential (primary) hypertension (principal)

== ENCOUNTER 2019-11-17 22:48 | Emergency (ER) | payer OTHER ==
[~2019-11-17] VITALS: Ht 167.6 cm; Wt 118.2 kg
[~2019-11-17 22:48] MED LIST changes: -ALL10TAB29 PO; +CETI-24 PO
[2019-11-17] MEDS ORDERED: METF750T36 (23:00)
[2019-11-17] MEDS ORDERED: LISI40TA (23:00)
[2019-11-18] MEDS ORDERED: ANUSOL HC 25MG SUPP PR STA (01:07)
[2019-11-18] MEDS ORDERED: ANUSOL HC CREAM 30GM TOP STA (01:07)
[2019-11-18] MEDS ORDERED: ANUS2.5C2 TOP (01:10)
[2019-11-18] MEDS ORDERED: ANUS25SU PR (01:10)
[2019-11-18 01:46] VITALS: BP 156/88
== END 2019-11-18 01:47 | disposition home or self-care (01) ==
LOC: M ED 22:48
DX: K64.5 Perianal venous thrombosis (principal); I10 Essential (primary) hypertension; J45.909 Unspecified asthma, uncomplicated; Z87.891 Personal history of nicotine dependence; Z79.82 Long term (current) use of aspirin; Z79.899 Other long term (current) drug therapy; Z88.8 Allergy status to other drugs, medicaments and biological substances

== ENCOUNTER → 2019-11-19 | Outpatient (CLI) | payer OTHER ==
[~2019-11-19] MED LIST changes: +ALL10TAB29 PO; +ANUS2.5C2 TOP; +ANUS25SU PR; -CETI-24 PO; +LISI40TA; +METF750T36
[2019-11-19 14:56] LABS: BLOOD UREA NITROGEN 9 MG/DL (7-18); CALCIUM LEVEL 8.8 MG/DL (8.5-10.1); CARBON DIOXIDE LEVEL 25 MEQ/L (21-32); CHLORIDE LEVEL 108 MEQ/L (98-107); CREATININE FOR GFR 0.68 MG/DL (0.55-1.30); GLOMERULAR FILTRATION RATE > 60.0 (>58); GLUCOSE, FASTING 114 MG/DL (70-100); POTASSIUM SERUM 4.2 MEQ/L (3.5-5.1); SODIUM LEVEL 140 MEQ/L (136-145)
== END ==
LOC: M LAB 13:45
PROVIDERS: ATTEND Obstetrics & Gynecology
DX: I10 Essential (primary) hypertension (principal)

== ENCOUNTER 2019-11-26 22:34 | Emergency (ER) | payer OTHER ==
[~2019-11-26] VITALS: Ht 167.6 cm; Wt 120.6 kg
[2019-11-27 01:56] VITALS: BP 115/64
== END 2019-11-27 01:57 | disposition home or self-care (01) ==
LOC: M ED 22:34
DX: T46.4X1A Poisoning by angiotensin-converting-enzyme inhibitors, accidental (unintentional), initial encounter (principal); E11.9 Type 2 diabetes mellitus without complications; I10 Essential (primary) hypertension; J45.909 Unspecified asthma, uncomplicated; Z79.82 Long term (current) use of aspirin; Z79.84 Long term (current) use of oral hypoglycemic drugs; Z79.899 Other long term (current) drug therapy; Z88.8 Allergy status to other drugs, medicaments and biological substances

== ENCOUNTER → 2020-01-16 | Outpatient (CLI) | payer OTHER ==
[~2020-01-16] MED LIST changes: -ALL10TAB29 PO; +CETI-24 PO
[2020-01-16 11:40] LABS: HEMOGLOBIN A1c 5.8 %
[2020-01-16 12:18] LABS: CHOLESTEROL RISK RATIO 3.523 (<5)
== END ==
LOC: M LAB 09:10
PROVIDERS: ATTEND Student in an Organized Health Care Education/Training Program
DX: E11.9 Type 2 diabetes mellitus without complications (principal); E78.00 Pure hypercholesterolemia, unspecified

== ENCOUNTER → 2020-05-19 | Outpatient (REF) | payer OTHER ==
[~2020-05-19] MED LIST changes: -MONT10TA4 PO; +MONT5TAB2 PO
[2020-05-19 16:31] LABS: ALBUMIN 3.9 GM/DL (3.2-5.2); ALT/SGPT 23 U/L (12-78); BILIRUBIN,TOTAL 0.3 MG/DL (0.2-1.0); BLOOD UREA NITROGEN 10 MG/DL (7-18); CARBON DIOXIDE LEVEL 30 MEQ/L (21-32); CHLORIDE LEVEL 105 MEQ/L (98-107); GLOMERULAR FILTRATION RATE > 60.0 (>58); GLUCOSE, FASTING 91 MG/DL (70-100); HEMOGLOBIN A1c 5.5 %; POTASSIUM SERUM 4.3 MEQ/L (3.5-5.1); SODIUM LEVEL 140 MEQ/L (136-145); TOTAL PROTEIN 7.6 GM/DL (6.4-8.2)
== END ==
LOC: M SFHCPLAZ 12:10
PROVIDERS: ATTEND Family Medicine
DX: I10 Essential (primary) hypertension (principal); R73.03 Prediabetes

== ENCOUNTER → 2020-08-11 | Outpatient (CLI) | payer OTHER ==
[~2020-08-11] MED LIST changes: +ASPI-569 PO; -ASPI81TAEC PO; -LISI-538 PO; +LISI20TA33 PO; -LISI40TA; +LISI40TA4; +MONT10TA10 PO; -MONT5TAB2 PO
--- NOTE | 2020-08-11 15:26 | REP ---
INDICATION: N64.4 RT BREAST PAIN. Patient reports pain in the 9 o'clock periareolar region of the right breast and at 10-11 o'clock in the right upper outer quadrant x1 year. COMPARISON: Mammography dated November 19, 2018, July 05, 2017 is reviewed. TECHNIQUE: Bilateral CC and MLO) view(s) were taken. Routine views of the right breast were augmented by magnified focal spot-compression right CC, mL, and MLO views. 3D tomography is performed. Targeted right breast sonography is carried out. FINDINGS: Scattered fibroglandular elements are seen bilaterally. There is a 1.1 cm well-circumscribed lens shaped nodule in the right breast laterally at approximately the 9 o'clock position, posterior 3rd. The portion of this appears to have been present at the edge of the film on on the 2018 mammogram. There is no other significant mammographic finding. No microcalcification or architectural distortion is seen. No worrisome skin change is appreciated. 3-D tomosynthesis shows no additional finding. The Volpara volumetric breast density pattern is B. Targeted right breast sonography: Heterogeneous fibroglandular background echotexture is observed sonographically. The right breast is examined sonographically from 8:00 to 11:00. In the 8 o'clock position, 8-9 cm from the nipple, there is an 8 x 8 x 6 mm septated cyst. This is felt to account for the mammographic opacity. It has a benign appearance by ultrasound. A 2nd smaller cyst is seen at 11 o'clock in the right breast approximately 5 cm from the nipple measuring 5 mm. No other significant sonographic finding.. IMPRESSION: BIRADS/ACR category 2 benign mammographic and sonographic findings. Benign cyst accounts for the mammographic opacity on the right. This patient's [facility] lifetime breast cancer risk assessment score is 12.1%. This mammogram was interpreted with the aid of an FDA-approved computer-aided detection system. The patient states she had a clinical breast exam in over a year ago. The patient letter being requested is M2. RECOMMENDATION: Repeat screening mammography recommended 1 year (for women over 40). <Electronically signed by Monroe Maldonado > 08/11/20 [id number]
== END ==
LOC: M WHC 12:37
PROVIDERS: ATTEND Internal Medicine Nephrology
DX: N60.01 Solitary cyst of right breast (principal)
CPT/HCPCS: 76642; 77066; G0279

== ENCOUNTER → 2020-08-19 | Outpatient (REF) | payer OTHER | LOC: M SFHCPLAZ 11:45 | PROVIDERS: ATTEND Family Medicine | DX: Z13.220 Encounter for screening for lipoid disorders (principal); R73.03 Prediabetes ==

== ENCOUNTER → 2020-08-21 | Outpatient (CLI) | payer OTHER ==
[2020-08-21 12:16] LABS: HEMOGLOBIN A1c 5.2 %
[2020-08-21 12:34] LABS: BLOOD UREA NITROGEN 13 MG/DL (7-18); CALCIUM LEVEL 9.2 MG/DL (8.5-10.1); CARBON DIOXIDE LEVEL 25 MEQ/L (21-32); CHLORIDE LEVEL 107 MEQ/L (98-107); CHOLESTEROL LEVEL 137 MG/DL (<200); CHOLESTEROL RISK RATIO 2.795 (<5); CREATININE FOR GFR 0.69 MG/DL (0.55-1.30); GLOMERULAR FILTRATION RATE > 60.0 (>58); GLUCOSE, FASTING 87 MG/DL (70-100); HDL CHOLESTEROL 49 MG/DL (>40); LDL CHOLESTEROL 74 MG/DL (<100); NON-HDL-C 88 MG/DL; POTASSIUM SERUM 4.2 MEQ/L (3.5-5.1); SODIUM LEVEL 140 MEQ/L (136-145); TRIGLYCERIDES LEVEL 71 MG/DL (<150)
[2020-08-21 12:43] LABS: MAU/CREAT RATIO 7.5 MCG/MG (0.0-30.0)
== END ==
LOC: M LAB 10:22
PROVIDERS: ATTEND Student in an Organized Health Care Education/Training Program
DX: Z13.220 Encounter for screening for lipoid disorders (principal); R73.03 Prediabetes

== ENCOUNTER → 2021-01-08 | Outpatient (REF) | payer OTHER | LOC: M SFHCPLAZ 11:59 | PROVIDERS: ATTEND Family Medicine | DX: R73.03 Prediabetes (principal); I10 Essential (primary) hypertension; Z53.9 Procedure and treatment not carried out, unspecified reason ==

== ENCOUNTER → 2021-01-08 | Outpatient (CLI) | payer OTHER ==
[2021-01-08 15:31] LABS: HEMOGLOBIN A1c 5.6 %
[2021-01-08 15:47] LABS: BLOOD UREA NITROGEN 10 MG/DL (7-18); CALCIUM LEVEL 9.1 MG/DL (8.5-10.1); CARBON DIOXIDE LEVEL 29 MEQ/L (21-32); CHLORIDE LEVEL 106 MEQ/L (98-107); FREE T4 0.85 NG/DL (0.76-1.46); GLOMERULAR FILTRATION RATE > 60.0 (>58); GLUCOSE, FASTING 90 MG/DL (70-100); POTASSIUM SERUM 4.3 MEQ/L (3.5-5.1); SODIUM LEVEL 139 MEQ/L (136-145)
== END ==
LOC: M PLALAB 12:27
PROVIDERS: ATTEND Student in an Organized Health Care Education/Training Program
DX: R73.03 Prediabetes (principal); I10 Essential (primary) hypertension

== ENCOUNTER → 2021-04-27 | Outpatient (CLI) | payer OTHER ==
[~2021-04-27] MED LIST changes: -MONT10TA10 PO; +MONT10TA97 PO
[2021-04-27 17:43] LABS: HEMOGLOBIN A1c 5.7 %
[2021-04-27 17:46] LABS: BLOOD UREA NITROGEN 11 MG/DL (7-18); CALCIUM LEVEL 9.2 MG/DL (8.5-10.1); CARBON DIOXIDE LEVEL 28 MEQ/L (21-32); CHLORIDE LEVEL 107 MEQ/L (98-107); CREATININE FOR GFR 0.67 MG/DL (0.55-1.30); GLOMERULAR FILTRATION RATE > 60.0 (>58); GLUCOSE, FASTING 97 MG/DL (70-100); POTASSIUM SERUM 4.3 MEQ/L (3.5-5.1); SODIUM LEVEL 140 MEQ/L (136-145)
== END ==
LOC: M PLALAB 15:10
PROVIDERS: ATTEND Student in an Organized Health Care Education/Training Program
DX: R73.03 Prediabetes (principal); I10 Essential (primary) hypertension

== ENCOUNTER → 2021-04-27 | Outpatient (REF) | payer OTHER ==
[~2021-04-27] MED LIST changes: +MONT10TA10 PO; -MONT10TA97 PO
== END ==
LOC: M SFHCPLAZ 14:50
PROVIDERS: ATTEND Family Medicine
DX: R73.03 Prediabetes (principal); I10 Essential (primary) hypertension; Z53.9 Procedure and treatment not carried out, unspecified reason

== ENCOUNTER → 2021-06-09 | Outpatient (CLI) | payer OTHER ==
[~2021-06-09] MED LIST changes: -MONT10TA10 PO; +MONT10TA97 PO
== END ==
LOC: M LAB 07:42
PROVIDERS: ATTEND Student in an Organized Health Care Education/Training Program
DX: R73.03 Prediabetes (principal)

== ENCOUNTER → 2021-08-09 | Outpatient (REF) | payer OTHER | LOC: M SFHCPLAZ 13:49 | PROVIDERS: ATTEND Family Medicine | DX: Z53.9 Procedure and treatment not carried out, unspecified reason (principal) ==

== ENCOUNTER → 2021-08-11 | Outpatient (CLI) | payer OTHER ==
[2021-08-11 14:17] LABS: ALBUMIN 3.8 GM/DL (3.2-5.2); ALT/SGPT 21 U/L (12-78); BILIRUBIN,TOTAL 0.4 MG/DL (0.2-1.0); BLOOD UREA NITROGEN 13 MG/DL (7-18); CALCIUM LEVEL 9.4 MG/DL (8.5-10.1); CARBON DIOXIDE LEVEL 30 MEQ/L (21-32); CHLORIDE LEVEL 105 MEQ/L (98-107); CHOLESTEROL LEVEL 194 MG/DL (<200); CHOLESTEROL RISK RATIO 3.803 (<5); CREATININE FOR GFR 0.72 MG/DL (0.55-1.30); GLOMERULAR FILTRATION RATE > 60.0 (>58); GLUCOSE, FASTING 107 MG/DL (70-100); HDL CHOLESTEROL 51 MG/DL (>40); LDL CHOLESTEROL 120 MG/DL (<100); NON-HDL-C 143 MG/DL; SODIUM LEVEL 138 MEQ/L (136-145); TOTAL PROTEIN 7.6 GM/DL (6.4-8.2); TRIGLYCERIDES LEVEL 113 MG/DL (<150)
== END ==
LOC: M PLALAB 10:12
PROVIDERS: ATTEND Student in an Organized Health Care Education/Training Program
DX: I10 Essential (primary) hypertension (principal); Z68.41 Body mass index [BMI] 40.0-44.9, adult

== ENCOUNTER → 2021-08-19 | Outpatient (CLI) | payer OTHER | LOC: M RAD 13:39 | PROVIDERS: ATTEND Student in an Organized Health Care Education/Training Program | DX: R22.2 Localized swelling, mass and lump, trunk (principal) ==

== ENCOUNTER → 2021-09-01 | Outpatient (CLI) | payer OTHER | LOC: M CARPUL 13:11 | PROVIDERS: ATTEND Student in an Organized Health Care Education/Training Program | DX: R06.02 Shortness of breath (principal) ==

== ENCOUNTER → 2021-12-02 | Outpatient (CLI) | payer OTHER | LOC: M WHC 13:48 | PROVIDERS: ATTEND Family Medicine | DX: Z53.9 Procedure and treatment not carried out, unspecified reason (principal) ==

== ENCOUNTER → 2021-12-06 | Outpatient (CLI) | payer OTHER | LOC: M WHC 13:40 | PROVIDERS: ATTEND Student in an Organized Health Care Education/Training Program | DX: Z12.31 Encounter for screening mammogram for malignant neoplasm of breast (principal); Z80.3 Family history of malignant neoplasm of breast; Z80.41 Family history of malignant neoplasm of ovary; Z80.49 Family history of malignant neoplasm of other genital organs ==

== ENCOUNTER → 2021-12-22 | Outpatient (CLI) | payer OTHER | LOC: M RAD 12:12 | PROVIDERS: ATTEND Physician Assistant | DX: S92.511A Displaced fracture of proximal phalanx of right lesser toe(s), initial encounter for closed fracture (principal); X58.XXXA Exposure to other specified factors, initial encounter; Y92.9 Unspecified place or not applicable; Y99.9 Unspecified external cause status; Y93.9 Activity, unspecified ==

== ENCOUNTER → 2022-03-30 | Outpatient (CLI) | payer OTHER ==
[~2022-03-30] MED LIST changes: -LISI40TA4; +LISI40TA4 PO; -METF750T36; +METF750T36 PO
== END ==
LOC: M LABSMTC 11:00
PROVIDERS: ATTEND Anesthesiology
DX: Z01.812 Encounter for preprocedural laboratory examination (principal); Z11.52 Encounter for screening for COVID-19

== ENCOUNTER 2022-04-04 11:38 | Day surgery (SDC) | payer OTHER ==
[~2022-04-04] VITALS: Ht 167.6 cm; Wt 117.0 kg
[~2022-04-04 11:38] MED LIST changes: +NS 1,000 ML IV ONE
[2022-04-04] MEDS ORDERED: fentaNYL 100 MCG/2 ML INJECTION As Ordered ONE (13:57)
[2022-04-04] MEDS ORDERED: propofoL 200 MG/20 ML VIAL As Ordered ONE ×2 (13:57→14:05)
[2022-04-04] MEDS ORDERED: LIDOCAINE 2% 100MG/5ML SDV (FOR ANES.) As Ordered ONE (13:57)
[2022-04-04 14:32] VITALS: BP 118/73
== END 2022-04-04 14:43 | disposition home or self-care (01) ==
LOC: M OPP 11:38
PROVIDERS: ATTEND Internal Medicine Gastroenterology
DX: K29.70 Gastritis, unspecified, without bleeding (principal); K22.89 Other specified disease of esophagus; R12 Heartburn; Z79.51 Long term (current) use of inhaled steroids; Z79.82 Long term (current) use of aspirin; Z79.84 Long term (current) use of oral hypoglycemic drugs; Z79.899 Other long term (current) drug therapy; I10 Essential (primary) hypertension; E03.9 Hypothyroidism, unspecified; F32.9 Major depressive disorder, single episode, unspecified; F41.9 Anxiety disorder, unspecified; J45.909 Unspecified asthma, uncomplicated; Z80.1 Family history of malignant neoplasm of trachea, bronchus and lung; Z80.3 Family history of malignant neoplasm of breast; Z80.41 Family history of malignant neoplasm of ovary
CPT/HCPCS: 43239; 88305; J3010

== ENCOUNTER → 2022-08-01 | Outpatient (REF) | payer OTHER ==
[~2022-08-01] MED LIST changes: -NS 1,000 ML IV ONE
== END ==
LOC: M SFHCPLAZ 17:20
PROVIDERS: ATTEND Family Medicine
DX: Z53.9 Procedure and treatment not carried out, unspecified reason (principal)

== ENCOUNTER → 2022-08-02 | Outpatient (CLI) | payer OTHER ==
[2022-08-02 11:25] LABS: FOLLICLE STIMULATING HORMONE 44.2 mIU/ML; LUTEINIZING HORMONE 36.4 mIU/ML; THYROID STIMULATING HORMONE 6.967 uIU/ML (0.55-4.78)
[2022-08-02 11:26] LABS: VITAMIN B12 LEVEL 492 PG/ML (211-911)
[2022-08-02 11:27] LABS: FOLATE > 24.0 NG/ML (>5.4)
== END ==
LOC: M PLALAB 08:10
PROVIDERS: ATTEND Student in an Organized Health Care Education/Training Program
DX: R53.82 Chronic fatigue, unspecified (principal)

== ENCOUNTER → 2022-09-19 | Outpatient (REF) | payer OTHER ==
[~2022-09-19] MED LIST changes: +FLUT50SP17 NARES; -FLUTISP NARES
== END ==
LOC: M SFHCPLAZ 15:19
PROVIDERS: ATTEND Student in an Organized Health Care Education/Training Program
DX: E03.9 Hypothyroidism, unspecified (principal); Z53.8 Procedure and treatment not carried out for other reasons

== ENCOUNTER → 2022-10-18 | Outpatient (CLI) | payer OTHER | LOC: M RAD 14:51 | PROVIDERS: ATTEND Student in an Organized Health Care Education/Training Program | DX: E03.9 Hypothyroidism, unspecified (principal) ==

== ENCOUNTER → 2022-12-23 | Outpatient (CLI) | payer OTHER ==
[2022-12-23 18:24] LABS: THYROID STIMULATING HORMONE 0.784 uIU/ML (0.55-4.78)
[2022-12-23 18:25] LABS: TOTAL 25(OH) VITAMIN D 27.5 NG/ML (20.0-100.0)
== END ==
LOC: M LAB 16:21
PROVIDERS: ATTEND Student in an Organized Health Care Education/Training Program
DX: E03.9 Hypothyroidism, unspecified (principal)

== ENCOUNTER → 2023-02-27 | Outpatient (CLI) | payer OTHER | LOC: M WHC 08:20 | PROVIDERS: ATTEND Student in an Organized Health Care Education/Training Program | DX: Z12.31 Encounter for screening mammogram for malignant neoplasm of breast (principal); Z80.41 Family history of malignant neoplasm of ovary; Z80.3 Family history of malignant neoplasm of breast; Z80.49 Family history of malignant neoplasm of other genital organs ==

== ENCOUNTER → 2023-06-12 | Outpatient (CLI) | payer OTHER ==
[~2023-06-12] MED LIST changes: -FLUT50SP17 NARES; +FLUTISP NARES
[2023-06-12 11:33] LABS: BASO % 0.4 % (0.0-1.0); EOS # 0.2 10^3/uL (0.0-0.5); EOS % 2.2 % (0.0-3.0); HEMATOCRIT 42.6 % (36.0-47.0); HEMOGLOBIN 14.3 g/dl (12.0-15.5); LYMPH # 2.3 10^3/uL (1.5-5.0); LYMPH % 34.4 % (24.0-44.0); MEAN CORPUSCULAR HEMOGLOBIN 31.4 pg (27.0-33.0); MEAN CORPUSCULAR HGB CONC 33.6 g/dl (32.0-36.5); MEAN CORPUSCULAR VOLUME 93.6 fl (80.0-96.0); MONO # 0.4 10^3/uL (0.0-0.8); MONO % 5.2 % (2.0-8.0); NEUTROPHILS # 3.9 10^3/uL (1.5-8.5); NEUTROPHILS % 57.5 % (36.0-66.0); PLATELET COUNT, AUTOMATED 281 10^3/uL (150-450); RED BLOOD COUNT 4.55 10^6/uL (4.00-5.40); WHITE BLOOD COUNT 6.7 10^3/uL (4.0-10.0)
[2023-06-12 12:08] LABS: ALBUMIN 3.6 G/DL (3.2-5.2); ALKALINE PHOSPHATASE 64 U/L (46-116); ALT/SGPT 13 U/L (7.0-40); AST/SGOT 16 U/L (<34); BILIRUBIN,TOTAL 0.4 MG/DL (0.3-1.2); BLOOD UREA NITROGEN 12 MG/DL (9-23); CALCIUM LEVEL 9.1 MG/DL (8.5-10.1); CARBON DIOXIDE LEVEL 27 MMOL/L (20-31); CHLORIDE LEVEL 106 MMOL/L (98-107); CHOLESTEROL LEVEL 174 MG/DL (<200); CHOLESTEROL RISK RATIO 3.39 (<5); CREATININE FOR GFR 0.63 MG/DL (0.55-1.30); GLOMERULAR FILTRATION RATE > 60.0 (>51); GLUCOSE, FASTING 100 MG/DL (60-100); HDL CHOLESTEROL 51.3 MG/DL (>40); IRON (FE) 113 UG/DL (50-170); LDL CHOLESTEROL 93.5 MG/DL (<100); NON-HDL-C 122.7 MG/DL; POTASSIUM SERUM 4.7 MMOL/L (3.5-5.1); SODIUM LEVEL 138 MMOL/L (136-145); TRIGLYCERIDES LEVEL 146 MG/DL (<150)
[2023-06-12 12:09] LABS: THYROID STIMULATING HORMONE 3.081 uIU/ML (0.55-4.78)
[2023-06-12 12:10] LABS: FREE T4 1.21 NG/DL (0.89-1.76)
[2023-06-12 12:17] LABS: FOLATE > 24.0 NG/ML (>5.4); VITAMIN B12 LEVEL 518 PG/ML (211-911)
== END ==
LOC: M LAB 11:00
PROVIDERS: ATTEND Student in an Organized Health Care Education/Training Program
DX: E03.9 Hypothyroidism, unspecified (principal); I10 Essential (primary) hypertension; R73.03 Prediabetes

== ENCOUNTER → 2023-08-25 | Outpatient (CLI) | payer OTHER | LOC: M RAD 17:29 → M LAB 17:29 | PROVIDERS: ATTEND Physician Assistant | DX: R52 Pain, unspecified (principal) ==

== ENCOUNTER → 2023-09-01 | Outpatient (REF) | payer OTHER | LOC: M SFHCPLAZ 15:55 | PROVIDERS: ATTEND Student in an Organized Health Care Education/Training Program | DX: R19.7 Diarrhea, unspecified (principal) ==

== ENCOUNTER → 2023-11-09 | Outpatient (CLI) | payer OTHER ==
[2023-11-09 09:41] LABS: HEMOGLOBIN A1c 5.4 % (4.0-6.0)
== END ==
LOC: M LAB 08:26
PROVIDERS: ATTEND Student in an Organized Health Care Education/Training Program
DX: R73.03 Prediabetes (principal)

== ENCOUNTER → 2024-03-20 | Outpatient (CLI) | payer OTHER | LOC: M WUC 15:14 | PROVIDERS: ATTEND Student in an Organized Health Care Education/Training Program | DX: M25.561 Pain in right knee (principal) ==

== ENCOUNTER → 2024-07-09 | Outpatient (CLI) | payer OTHER ==
[2024-07-09 14:57] LABS: THYROID STIMULATING HORMONE 0.419 uIU/ML (0.55-4.78)
[2024-07-09 14:59] LABS: FREE T4 1.58 NG/DL (0.89-1.76)
== END ==
LOC: M LAB 12:24
PROVIDERS: ATTEND Student in an Organized Health Care Education/Training Program
DX: I10 Essential (primary) hypertension (principal)

== ENCOUNTER 2024-08-15 08:46 | Day surgery (SDC) | payer OTHER ==
[~2024-08-15] VITALS: Ht 168.9 cm; Wt 104.3 kg
[~2024-08-15 08:46] MED LIST changes: +SEMA2PEN SQ
[2024-08-15] MEDS ORDERED: propofoL 500 MG/50 ML VIAL As Ordered ONE (10:07)
[2024-08-15 11:19] VITALS: TEMP 99.2
[2024-08-15 11:36] VITALS: BP 119/66; O2SAT 96
[2024-08-15] MEDS ORDERED: fentaNYL 100 MCG/2 ML INJECTION As Ordered ONE (11:41)
== END 2024-08-15 11:53 | disposition home or self-care (01) ==
LOC: M OPP 08:46
PROVIDERS: ATTEND Surgery
DX: Z12.11 Encounter for screening for malignant neoplasm of colon (principal); K57.30 Diverticulosis of large intestine without perforation or abscess without bleeding; K64.4 Residual hemorrhoidal skin tags; Z88.1 Allergy status to other antibiotic agents; Z79.82 Long term (current) use of aspirin; Z79.85 Long-term (current) use of injectable non-insulin antidiabetic drugs; Z79.899 Other long term (current) drug therapy; Z87.891 Personal history of nicotine dependence
CPT/HCPCS: 45378; J3010

== ENCOUNTER → 2024-08-20 | Outpatient (CLI) | payer OTHER ==
[2024-08-20 10:26] LABS: BASO % 0.5 % (0.0-1.0); EOS # 0.1 10^3/uL (0.0-0.5); EOS % 2.5 % (0.0-3.0); HEMATOCRIT 43.7 % (36.0-47.0); HEMOGLOBIN 14.4 g/dl (12.0-15.5); LYMPH # 2.1 10^3/uL (1.5-5.0); LYMPH % 36.8 % (24.0-44.0); MEAN CORPUSCULAR HEMOGLOBIN 31.2 pg (27.0-33.0); MEAN CORPUSCULAR VOLUME 94.6 fl (80.0-96.0); MONO # 0.3 10^3/uL (0.0-0.8); MONO % 5.6 % (2.0-8.0); NEUTROPHILS % 54.4 % (36.0-66.0); PLATELET COUNT, AUTOMATED 275 10^3/uL (150-450); RED BLOOD COUNT 4.62 10^6/uL (4.00-5.40); WHITE BLOOD COUNT 5.6 10^3/uL (4.0-10.0)
[2024-08-20 10:54] LABS: HEMOGLOBIN A1c 4.9 % (4.0-6.0)
[2024-08-20 10:57] LABS: BLOOD UREA NITROGEN 10 MG/DL (9-23); CARBON DIOXIDE LEVEL 30 MMOL/L (20-31); CHLORIDE LEVEL 107 MMOL/L (98-107); CHOLESTEROL LEVEL 135 MG/DL (<200); CHOLESTEROL RISK RATIO 3.21 (<5); CREATININE FOR GFR 0.78 MG/DL (0.55-1.30); GLOMERULAR FILTRATION RATE > 60.0 (>51); GLUCOSE, FASTING 85 MG/DL (60-100); LDL CHOLESTEROL 71.4 MG/DL (<100); POTASSIUM SERUM 4.3 MMOL/L (3.5-5.1); SODIUM LEVEL 142 MMOL/L (136-145); TOTAL 25(OH) VITAMIN D 15.1 NG/ML (20.0-100.0); TRIGLYCERIDES LEVEL 108 MG/DL (<150)
[2024-08-23 15:38] LABS: THYROID STIMULATING HORMONE 2.415 uIU/ML (0.55-4.78)
== END ==
LOC: M LAB 09:40
PROVIDERS: ATTEND Student in an Organized Health Care Education/Training Program
DX: E55.9 Vitamin D deficiency, unspecified (principal); I10 Essential (primary) hypertension; E11.9 Type 2 diabetes mellitus without complications

== ENCOUNTER → 2024-12-05 | Outpatient (CLI) | payer OTHER ==
[~2024-12-05] MED LIST changes: +LISI40TA10 PO; -LISI40TA4 PO
== END ==
LOC: M WHC 07:20
PROVIDERS: ATTEND Student in an Organized Health Care Education/Training Program
DX: Z12.31 Encounter for screening mammogram for malignant neoplasm of breast (principal)

== ENCOUNTER 2025-04-20 13:34 | Emergency (ER) | payer OTHER ==
[~2025-04-20] VITALS: Ht 167.6 cm; Wt 101.8 kg
[2025-04-20 13:38] VITALS: BP 107/71; TEMP 97; O2SAT 97
[2025-04-20] MEDS ORDERED: LEVO100T5 (13:42)
[2025-04-20] MEDS ORDERED: CLIN-250 PO (14:19)
== END 2025-04-20 14:36 | disposition home or self-care (01) ==
LOC: M ED 13:34
DX: N76.4 Abscess of vulva (principal); I10 Essential (primary) hypertension; K21.9 Gastro-esophageal reflux disease without esophagitis; E03.9 Hypothyroidism, unspecified; Z79.4 Long term (current) use of insulin; Z79.899 Other long term (current) drug therapy; Z88.1 Allergy status to other antibiotic agents